=== PATIENT | male | born 1950 | race Caucasian/White ===

== ENCOUNTER 2018-04-11 12:04 | Emergency (ER) | payer BC ==
[2018-04-11 13:02] VITALS: BP 123/61
--- NOTE | 2018-04-11 13:45 | UC ---
Skin Complaint HPI - HPI Summary HPI Summary: Patient has a 5 mm firm area on the back of his neck minimal soft fluctuance no erythema and then to the patient's right of that he has approximately 2 cm long brown raised area. Patient reports that is the same site of the previous sebaceous cyst that was I&D at the [facility] - History of Current Complaint Chief Complaint: UCSkin Time Seen by Provider: 04/11/18 13:30 Stated Complaint: BUMP ON BACK OF NECK Hx Obtained From: Patient Onset/Duration: Gradual Onset, Lasting Days - 5, Still Present Timing: Constant Pain Intensity: 5 Pain Scale Used: 0-10 Numeric Location: Discrete - right side of the back of his neck Character: Pain, Redness Aggravating Factor(s): Touch Alleviating Factor(s): Nothing Associated Signs & Symptoms: Positive: Negative - Allergy/Home Medications Allergies/Adverse Reactions: Allergies Allergy/AdvReac Type Severity Reaction Status Date / Time No Known Allergies Allergy Verified 04/11/18 12:52 Home Medications: Home Medications Clopidogrel TAB* [Plavix TAB*] 75 mg PO DAILY 04/11/18 [History Confirmed ] Ferrous Sulfate TAB* 1 tab DAILY 04/11/18 [History Confirmed 04/11/18] Hydrochlorothiazide TAB* [Hydrodiuril TAB*] 1 tab BID 04/11/18 [History Confirmed 04/11/18] Insulin Aspart [Novolog Flexpen] 1 - 10 units SEE INSTRUCTIONS 04/11/18 [ History Confirmed 04/11/18] Potassium Chlor TAB* [Potassium Chlor TAB 20 MEQ*] 20 meq DAILY 04/11/18 [ History Confirmed 04/11/18] Pravastatin (NF) [Pravachol (NF)] 5 mg DAILY 04/11/18 [History Confirmed ] Prazosin CAP* [Minipress CAP*] 2 mg BEDTIME 04/11/18 [History Confirmed 04/11/18 ] Valsartan TAB* [Diovan TAB*] 2 tab DAILY 04/11/18 [History Confirmed 04/11/18] amLODIPine TAB* [Norvasc 5 mg TAB*] 10 mg DAILY 04/11/18 [History Confirmed ] raNITIdine HCl [Ranitidine HCl] 150 mg BID 04/11/18 [History Confirmed 04/11/18] Review of Systems Constitutional: Negative Skin: Negative - on back of neck with 2 cm linear area, Other Eyes: Negative ENT: Negative Respiratory: Negative Cardiovascular: Negative Gastrointestinal: Negative Genitourinary: Negative Motor: Negative Neurovascular: Negative Musculoskeletal: Negative Neurological: Negative Psychological: Negative Is Patient Immunocompromised?: No All Other Systems Reviewed And Are Negative: Yes PMH/Surg Hx/FS Hx/Imm Hx Previously Healthy: No Endocrine History: Diabetes, Dyslipidemia Cardiovascular History: Hypertension GI/ History: Gastroesophageal Reflux Neurological History: CVA - Surgical History Surgical History: Yes Surgery Procedure, Year, and Place: APPENDECTOMY CHILD, INTESTINAL RESECTIONS 1957. - Family History Known Family History: Positive: Diabetes Negative: Hypertension - Social History Occupation: Retired Lives: With Family Alcohol Use: Daily Alcohol Amount: "couple drinks a day" Substance Use Type: None Smoking Status (MU): Former Smoker - Immunization History Most Recent Tetanus Shot: UTD Physical Exam Triage Information Reviewed: Yes Appearance: Well-Appearing, No Pain Distress, Well-Nourished Vital Signs: Initial Vital Signs Temp 98.5 F 04/11/18 12:52 Pulse 50 04/11/18 12:52 Resp 14 04/11/18 12:52 BP 123/61 04/11/18 12:52 Pulse Ox 100 04/11/18 12:52 Vital Signs Reviewed: Yes Eye Exam: Normal Eyes: Positive: Conjunctiva Clear ENT Exam: Normal ENT: Positive: Normal ENT inspection, Hearing grossly normal. Negative: Muffled voice, Hoarse voice, Dental tenderness Dental Exam: Normal Neck exam: Normal Neck: Positive: Supple, Nontender, No Lymphadenopathy Respiratory Exam: Normal Respiratory: Positive: Chest non-tender, No respiratory distress, No accessory muscle use Cardiovascular Exam: Normal Cardiovascular: Positive: RRR, Pulses Normal, Brisk Capillary Refill Musculoskeletal Exam: Normal Musculoskeletal: Positive: Strength Intact, ROM Intact, No Edema Neurological Exam: Normal Neurological: Positive: Alert, Muscle Tone Normal Psychological Exam: Normal Skin Exam: Normal - 5 mm cyst on the right side of the back of his neck scant amount of fluctuance. Has a curvilinear brown 2 cm area that's not attached to the cyst laterally, Other Skin: Positive: Other Course/Dx - Course Course Of Treatment: Reviewed patient's case with Dr. Becker plan will be to follow-up with surgeons office. Appointment made for patient on [place] at 9:00 and [address] [facility] with [facility] - Diagnoses Provider Diagnoses: Cyst on left side of neck posteriorly Discharge - Sign-Out/Discharge Documenting (check all that apply): Discharge/Admit/Transfer - Discharge Plan Condition: Stable Disposition: HOME Patient Education Materials: Acetaminophen (By mouth), Abscess (ED), Warm Compress or Soak (ED) Referrals: Puma Mcqueen MD [Primary Care Provider] - Additional Instructions: You have an appointment Saturday at 9 AM with the surgeon from [facility]. it is in the [place] office right behind this building, the addresses [address] [place] [address] - Billing Disposition and Condition Condition: STABLE Disposition: HOME
== END 2018-04-11 14:02 | disposition home or self-care (01) ==
LOC: UCCORT 12:04
DX: L72.9 Follicular cyst of the skin and subcutaneous tissue, unspecified (principal); Z87.891 Personal history of nicotine dependence
CPT/HCPCS: 99212; G0463

== ENCOUNTER 2018-06-27 14:45 | Emergency (ER) | payer BC ==
[2018-06-27 14:58] VITALS: BP 140/62
--- NOTE | 2018-06-27 15:12 | UC ---
UC General HPI - HPI Summary HPI Summary: 68 yo gentleman c/o cough, congestion, achy, headache progressively worse for over one week. No chills but tired. Possible fever at the onset. No rash. No hemoptysis. No GI issues. Does have hx copd, but hasn't used inhalers in a long time. Quit smoking years ago. Does not have a nebulizer. No chest pain perse, except hurts chest and back when coughs hard. No palpitations, reports that heart rate is baseline slow. Some left ear discomfort, with occasional dizziness (not now). - History of Current Complaint Chief Complaint: UCGeneralIllness Stated Complaint: CONGESTION/ACHY Time Seen by Provider: 06/27/18 15:10 Hx Obtained From: Patient Pain Intensity: 2 - Allergy/Home Medications Allergies/Adverse Reactions: Allergies Allergy/AdvReac Type Severity Reaction Status Date / Time No Known Allergies Allergy Verified 06/27/18 14:53 Home Medications: Home Medications Ibuprofen TAB* [Advil TAB*] 800 mg PO Q6H PRN 06/27/18 [History Confirmed ] PMH/Surg Hx/FS Hx/Imm Hx Previously Healthy: No - see hpi and below pmh - Surgical History Surgical History: Yes Surgery Procedure, Year, and Place: APPENDECTOMY CHILD, INTESTINAL RESECTIONS 1957. - Family History Known Family History: Positive: Diabetes Negative: Hypertension - Social History Alcohol Use: Occasionally Alcohol Amount: "couple drinks a day" Substance Use Type: None Smoking Status (MU): Former Smoker - Immunization History Most Recent Tetanus Shot: UTD Review of Systems Constitutional: Fatigue Skin: Negative Eyes: Negative ENT: Other - see hpi Respiratory: Other - see hpi Cardiovascular: Other - see hpi Gastrointestinal: Negative Genitourinary: Negative Motor: Other - see hpi Neurovascular: Negative Musculoskeletal: Other: - see hpi Neurological: Other - see hpi Psychological: Negative Is Patient Immunocompromised?: No All Other Systems Reviewed And Are Negative: Yes Physical Exam Triage Information Reviewed: Yes Appearance: Well-Nourished - sitting up, conversing in full sentances Vital Signs: Initial Vital Signs Temp 98.7 F 06/27/18 14:50 Pulse 55 06/27/18 14:50 Resp 16 06/27/18 14:50 BP 140/62 06/27/18 14:50 Pulse Ox 98 06/27/18 14:50 Vital Signs Reviewed: Yes Eye Exam: Normal ENT Exam: Other ENT: Positive: Pharynx normal, Other - R TM wnl L TM dull, johansen, rtx'd. EAC nad. + subj sinus tenderness and congestion Neck: Positive: Supple, Nontender Respiratory Exam: Other - BS equal. + rhonchi scattered bilat, + rhonchorus cough. + scattered wheeze. Lung sounds are more pronounce (worse) L > R. No rtx. Respiratory: Positive: No respiratory distress Cardiovascular Exam: Other - HR 50's at examination, correlates with L radial pulse.+syst murmur. Abdominal Exam: Normal - No c/o abd pain. + bs. Musculoskeletal Exam: Normal - moves x 4 ext's, gait steady. Neurological Exam: Normal - grossly nonfocal Psychological Exam: Normal - conversing easily and appropriately Skin Exam: Normal - no visible or reported rash, nondiaphoretic. Course/Dx - Course Course Of Treatment: Duoneb x 1. Feels a little better. Breath sounds improved. Rx albuterol. May benefit from nebulizer, d/w Mr. Allen. Rx prednisone taper, azithromycin. Reviewed with Mr. Allen. Encourage f/u PCP, this upcoming week if possible. Reviewed chest xray report with pt. Reviewed coa / tx plan. Questions as posed answered to the best of your ability. - Differential Dx - Multi-Symptom Provider Diagnoses: Acute bronchitis with wheezing Discharge - Sign-Out/Discharge Documenting (check all that apply): Patient Departure - Discharge Plan Condition: Stable Disposition: HOME Prescriptions: Albuterol HFA INHALER* [Ventolin HFA Inhaler*] 1 - 2 puff INH Q4H PRN #1 mdi PRN Reason: Wheezing Azithromyxin MALLY (NF) [Z-Mally (Zithromax) 250 mg tabs #6] 2 tab PO .TODAY, THEN 1 DAILY #6 tab predniSONE TAB* [Deltasone 10 MG TAB*] 10 mg PO DAILY #14 tab Patient Education Materials: Acute Bronchitis (ED), Wheezing (ED) Referrals: Puma Mcqueen MD [Primary Care Provider] - Additional Instructions: Follow up with your primary care physician - next week for breathing recheck. You may benefit from a home nebulizer. Check with your doctor. Seek medical attention for worse or new problems. - Billing Disposition and Condition Condition: STABLE Disposition: Home
[2018-06-27] MEDS ORDERED: Albuterol/Ipratropium NEB.SOL* Albuterol 2.5 MG/Ipratropium 0.5 MG 3 ML INH ONE (15:25)
--- NOTE | 2018-06-27 15:44 | RAD ---
Indication: Cough, wheezing. 2 views of the chest including dual energy PA views demonstrate no mediastinal shift. Heart is of normal size and configuration. Lung chaves are clear. IMPRESSION: No active cardiopulmonary disease is noted.
== END 2018-06-27 16:27 | disposition home or self-care (01) ==
LOC: UCCORT 14:45
DX: J20.9 Acute bronchitis, unspecified (principal); R06.2 Wheezing; Z87.891 Personal history of nicotine dependence
CPT/HCPCS: 71046; 99212; A9270-GY; G0463

== ENCOUNTER 2018-09-04 10:50 | Emergency (ER) | payer BC ==
[2018-09-04 12:16] VITALS: BP 138/77
--- NOTE | 2018-09-04 12:25 | UC ---
Skin Complaint HPI - HPI Summary HPI Summary: 68 yo male presents with a bug bite to his left wrist. He tells me that he was outside a lot in the last 3 days and has been bitten by ticks before around his property. He did not see a tick attached to his wrist, but the bruise/redness on his wrist look like tick bites he has had in the past. - History of Current Complaint Chief Complaint: UCSkin Time Seen by Provider: 09/04/18 12:25 Stated Complaint: TICK BITE LEFT WRIST Hx Obtained From: Patient Onset/Duration: Sudden Onset Current Severity: None Pain Intensity: 0 - Allergy/Home Medications Allergies/Adverse Reactions: Allergies Allergy/AdvReac Type Severity Reaction Status Date / Time No Known Allergies Allergy Verified 09/04/18 12:08 Review of Systems Constitutional: Negative Skin: Other - Bug bite left wrist Respiratory: Negative Cardiovascular: Negative Neurovascular: Negative Neurological: Negative Psychological: Negative All Other Systems Reviewed And Are Negative: Yes PMH/Surg Hx/FS Hx/Imm Hx Endocrine History: Diabetes Cardiovascular History: Cardiac Disease, Hypertension Respiratory History: Asthma GI/ History: Gastroesophageal Reflux - Surgical History Surgical History: Yes Surgery Procedure, Year, and Place: APPENDECTOMY CHILD, INTESTINAL RESECTIONS 1957. - Family History Known Family History: Positive: Diabetes Negative: Hypertension - Social History Occupation: Retired Lives: With Family Alcohol Use: Occasionally Alcohol Amount: "couple drinks a day" Substance Use Type: None Smoking Status (MU): Former Smoker - Immunization History Most Recent Tetanus Shot: UTD Physical Exam - Summary Physical Exam Summary: GENERAL: NAD. WDWN. No pain distress. SKIN: Left volar wrist: there is a 5mm diameter of mild erythema, ecchymosis, and edema with central 1mm area of superficial skin loss. No streaking, bleeding , or drainage. NECK: Supple. Nontender. No lymphadenopathy. CHEST: No accessory muscle use. Breathing comfortably and in no distress. CV: Pulses intact. Cap refill <2seconds NEURO: Alert. PSYCH: Age appropriate behavior. Triage Information Reviewed: Yes Vital Signs: Initial Vital Signs Temp 98.1 F 09/04/18 12:11 Pulse 48 09/04/18 12:11 Resp 17 09/04/18 12:11 BP 138/77 09/04/18 12:11 Pulse Ox 99 09/04/18 12:11 Vital Signs Reviewed: Yes Course/Dx - Course Course Of Treatment: Bug bite appears consistent with a tick bite. Pt says that he has had lyme disease in the past and would like prophylactic treatment with doxycycline today. - Diagnoses Provider Diagnoses: Tick bite left wrist Discharge - Sign-Out/Discharge Documenting (check all that apply): Patient Departure All imaging exams completed and their final reports reviewed: No Studies - Discharge Plan Condition: Stable Disposition: HOME Prescriptions: DOXYcycline CAP(*) [DOXYcycline 100MG CAP(*)] 200 mg PO ONCE #2 cap Patient Education Materials: Lyme Disease (ED), Tick Bite (ED) Referrals: Puma Mcqueen MD [Primary Care Provider] - Additional Instructions: If you develop a fever, shortness of breath, chest pain, new or worsening symptoms - please call your PCP or go to the ED. - Billing Disposition and Condition Condition: STABLE Disposition: Home - Attestation Statements Provider Attestation: Chart reviewed. I was available for consult. I did not see this patient and was not involved in any disposition or treatment decisions.
== END 2018-09-04 12:35 | disposition home or self-care (01) ==
LOC: UCCORT 10:50
DX: T63.481A Toxic effect of venom of other arthropod, accidental (unintentional), initial encounter (principal); Y92.007 Garden or yard of unspecified non-institutional (private) residence as the place of occurrence of the external cause; Z87.891 Personal history of nicotine dependence; I10 Essential (primary) hypertension; E11.9 Type 2 diabetes mellitus without complications
CPT/HCPCS: 99212; G0463